=== PATIENT | female | born 1955 | race Caucasian/White ===

== ENCOUNTER 2022-01-01 17:25 | Emergency (ER) | payer OTHER, BC ==
[2022-01-01] MEDS ORDERED: LIDOCAINE 2% MPF 5 ML VIAL ONE (18:02)
--- NOTE | 2022-01-01 18:30 | RAD REPORT ---
EXAM DESCRIPTION: RAD - Ankle Left 3 View - 01/01/2022 6:19 pm CLINICAL HISTORY: PAIN COMPARISON: No comparisons FINDINGS/IMPRESSION: No acute fracture. No malalignment. No significant focal degenerative changes.
--- NOTE | 2022-01-01 18:49 | ER ---
Nurse's Notes [facility] Name: Kimber German Age: 66 yrs Sex: Female : 1955 Arrival Date: 01/01/2022 Time: 17:28 Bed 2 Private MD: Diagnosis: Laceration without foreign body of ankle Presentation: 01/01 17:30 Chief complaint: Patient states: "I was cooking and dropped the knife and it hit my ss ankle. It was bleeding pretty bad." 1-2 cm laceration noted to L lateral ankle. No active bleeding noted at this time. Clean dressing placed. Coronavirus screen: Client denies travel out of the [place] in the last 14 days. Ebola Screen: Patient denies exposure to infectious person. Patient denies travel to an Ebola-affected area in the 21 days before illness onset. Complicating Factors: There are no complicating factors for this patient. Initial Sepsis Screen: Does the patient meet any 2 criteria? No. Patient's initial sepsis screen is negative. Does the patient have a suspected source of infection? No. Patient's initial sepsis screen is negative. Risk Assessment: Do you want to hurt yourself or someone else? Patient reports no desire to harm self or others. Onset of symptoms was January 01, 2022. 17:30 Method Of Arrival: Wheelchair ss 17:30 Acuity: TARAS 3 ss Historical: - Allergies: 18:13 No Known Allergies; jl7 - Home Meds: 18:13 None [Active]; jl7 - PMHx: 18:13 None; jl7 - Immunization history:: Last tetanus immunization: unknown. - Social history:: Smoking status: Patient denies any tobacco usage or history of. Screenin:13 Abuse screen: Denies threats or abuse. Denies injuries from another. Nutritional jl7 screening: No deficits noted. Tuberculosis screening: No symptoms or risk factors identified. Fall Risk None identified. Assessment: 17:51 General: PT brought from lobby to triage reporting "I think I'm gonna pass out, I might kb3 vomit. I need to go to the bathroom because I feel like I'm going to have diarrhea." Pt noted to be pale and clammy. Charge nurse notified. PT transported via to Room 2. 18:00 General: Appears in no apparent distress. uncomfortable, Behavior is cooperative, jl7 anxious, crying, Pt denies pain, reports recent loss of child. Pain: Denies pain. Neuro: Level of Consciousness is awake, alert, obeys commands, Oriented to person, place, time, situation. Cardiovascular: Patient's skin is warm and dry. Respiratory: Airway is patent Respiratory effort is even, unlabored, Respiratory pattern is regular, symmetrical. Derm: Skin is pink, warm \\T\\ dry. Musculoskeletal: Range of motion: intact in all extremities. Injury Description: Laceration sustained to left lateral ankle is 0.5 to 2.5 cm long, was sustained 30-60 minutes ago. is bleeding no active bleeding noted. Vital Signs: 17:50 BP 70 / 59; Pulse 59; Resp 26; Pulse Ox 100% ; kb3 17:56 BP 125 / 86; Pulse 76; Resp 15; Pulse Ox 100% ; jl7 18:30 Temp 97.9; Pain 0/10; jl7 18:30 BP 147 / 80; Pulse 66; Resp 15; Pulse Ox 100% ; jl7 ED Course: 17:28 Patient arrived in ED. am2 17:30 Arm band placed on right wrist. ss 17:32 Triage completed. ss 17:39 [facility] kb 17:39 Alfred Mata MD is Attending Physician. kb 18:04 Xi Ibrahim, SANA is Primary Nurse. jl7 18:13 Patient has correct armband on for positive identification. Bed in low position. Call jl7 light in reach. Side rails up X2. Pulse ox on. NIBP on. Warm blanket given. 19:02 Assist provider with laceration repair on left lateral ankle that was 2.5 cm. or less. jl7 Patient did not have IV access during this emergency room visit. Administered Medications: 18:40 Drug: Lidocaine (1 %) 1 vials {Note: administered by NP. Shawnee} Volume: 5 ml; Route: jl7 Infiltration; 19:02 Follow up: Response: No adverse reaction jl7 Medication: 19:02 VIS not applicable for this client. jl7 Outcome: 18:48 Discharge ordered by . kb 19:02 Discharged to home ambulatory. jl7 19:02 Condition: stable 19:02 Discharge instructions given to patient, family, Instructed on discharge instructions, follow up and referral plans. Demonstrated understanding of instructions, follow-up care. 19:03 Patient left the ED. jl7 Signatures: Shawnee Culp, SABINA-C PIPING DESIGNER-Carito Ledbetter, RN RN ss Xi Ibrahim RN RN jl7 Madisyn Munoz Kelly RN RN kb3 Corrections: (The following items were deleted from the chart) 18:13 18:13 PSHx: None; michelle jlIsadora
--- NOTE | 2022-01-01 18:49 | EDPHYS ---
Physician Documentation [facility] Name: Kimber German Age: 66 yrs Sex: Female : 1955 Arrival Date: 01/01/2022 Time: 17:28 Bed 2 Private MD: ED Physician Alfred Mata HPI: 01/02 00:25 This 66 yrs old Female presents to ER via Wheelchair with complaints of Laceration. kb 00:25 The patient has a laceration related to: knife fell off of counter occurred at home, kb and there are no complicating factors. The injury was accidental. The laceration(s) is(are) located on the left lateral ankle. Onset: The symptoms/episode began/occurred just prior to arrival. Associated signs and symptoms: The patient has no apparent associated signs or symptoms. The patient has not experienced similar symptoms in the past. The patient has not recently seen a physician. Pt states a knife fell off the counter and cut her left lateral ankle. Historical: - Allergies: 01/01 18:13 No Known Allergies; jl7 - Home Meds: 18:13 None [Active]; jl7 - PMHx: 18:13 None; jl7 - Immunization history:: Last tetanus immunization: unknown. - Social history:: Smoking status: Patient denies any tobacco usage or history of. ROS: 01/02 00:22 Constitutional: Negative for fever, chills, and weight loss. kb Skin: Positive for laceration(s), of the left lateral ankle. All other systems are negative. Exam: 00:22 Constitutional: This is a well developed, well nourished patient who is awake, alert, kb and in no acute distress. Head/Face: Normocephalic, atraumatic. ENT: Moist Mucous membranes Respiratory: Respirations even and unlabored. No increased work of breathing. Talking in full sentences MS/ Extremity: Pulses equal, no cyanosis. Neurovascular intact. Full, normal range of motion. Neuro: Awake and alert, GCS 15, oriented to person, place, time, and situation. Moves all extremities. Normal gait. Psych: Awake, alert, with orientation to person, place and time. Behavior, mood, and affect are within normal limits. 00:22 Skin: injury, laceration(s), the wound is approximately 1.5 cm(s), of the left lateral ankle, that can be described as clean, no foreign body, linear, without bleeding. Vital Signs: 01/01 17:50 BP 70 / 59; Pulse 59; Resp 26; Pulse Ox 100% ; kb3 17:56 BP 125 / 86; Pulse 76; Resp 15; Pulse Ox 100% ; jl7 18:30 Temp 97.9; Pain 0/10; jl7 18:30 BP 147 / 80; Pulse 66; Resp 15; Pulse Ox 100% ; jl7 Laceration: 01/02 00:22 Wound Repair of 1.5cm ( 0.6in ) subcutaneous laceration to left lateral ankle. Linear kb shaped.. Distal neuro/vascular/tendon intact. Anesthesia: Local anesthetic administered with 2 mls of 1% lidocaine. Wound prep: Moderate cleansing with hibiclenz by nj, Wound irrigation with saline. Skin closed with 2 4-0 Prolene using simple sutures and sterile technique. Patient tolerated well. MDM: 01/01 17:45 Patient medically screened. kb 01/02 00:20 Data reviewed: vital signs, nurses notes. Data interpreted: Pulse oximetry: on room air kb is 100 %. Interpretation: normal. Counseling: I had a detailed discussion with the patient and/or guardian regarding: the historical points, exam findings, and any diagnostic results supporting the discharge/admit diagnosis, radiology results, the need for outpatient follow up, a family practitioner, to return to the emergency department if symptoms worsen or persist or if there are any questions or concerns that arise at home. ED course: Pt had a vagal response in the lobby causing nausea, diaphoresis, hypotension, anxiety. States her son recently passed and being in the hospital was just causing a lot of stress. After resting on stretcher and calming down pt's blood pressure returned to normal and other symptoms resolved. Pt ambulated out of Ed via steady gait.. 01/01 17:56 Order name: Ankle Left 3 View XRAY kb 01/01 18:30 Order name: RAD; Complete Time: 18:48 EDMS 01/01 17:55 Order name: Dressing - Wound; Complete Time: 19:02 kb 01/01 17:55 Order name: Gloves, Sterile; Complete Time: 18:04 kb 01/01 17:55 Order name: Prolene, Sutures; Complete Time: 18:04 kb 01/01 17:55 Order name: Setup Suture Tray; Complete Time: 18:04 kb Administered Medications: 01/01 18:40 Drug: Lidocaine (1 %) 1 vials {Note: administered by NP. Shawnee} Volume: 5 ml; Route: jl7 Infiltration; 19:02 Follow up: Response: No adverse reaction jl7 Disposition Summary: 01/01/22 18:48 Discharge Ordered Location: Home kb Condition: Stable kb Diagnosis - Laceration without foreign body of ankle kb Followup: kb - With: Emergency Department - When: As needed - Reason: Worsening of condition Followup: kb - With: Private Physician - When: 2 - 3 days - Reason: Recheck today's complaints, Continuance of care, Re-evaluation by your physician Discharge Instructions: - Discharge Summary Sheet kb - Laceration Care, Adult, [id number] kb Forms: - Medication Reconciliation Form kb - Thank You Letter kb - Antibiotic Education kb - Prescription Opioid Use kb Signatures: Dispatcher [employer] EDMS Shawnee Culp, NURSE FIRST ASSIST-C NURSE FIRST ASSIST-Carito Ledbetter, RN RN Xi Ibrahim RN RN jl7 Corrections: (The following items were deleted from the chart) 18:13 18:13 PSHx: None; michelle jlIsadora
[2022-01-02 07:49] VITALS: O2SAT 100
[2022-01-02 07:52] VITALS: BP 147/80; TEMP 97.9
== END 2022-01-01 19:03 | disposition home or self-care (01) ==
LOC: ER 17:25
PROC: 0JQP0ZZ Repair Left Lower Leg Subcutaneous Tissue and Fascia, Open Approach (ICD-10-PCS; principal; 2022-01-01)
DX: S91.012A Laceration without foreign body, left ankle, initial encounter (principal)
CPT/HCPCS: 73610; 99283; 12001; J2001